=== PATIENT | male | born 1995 | race Asian ===

== ENCOUNTER 2017-11-22 15:19 | Emergency (ER) | payer MEDICAID ==
[~2017-11-22] VITALS: Ht 172.7 cm; Wt 60.3 kg
[~2017-11-22 15:19] MED LIST: IBUPROFEN600 MG ORAL
[2017-11-22] MEDS ORDERED: Lidocaine 1% MPF 10mg/ml 5ml INJ ONE (17:00)
[2017-11-22 17:10] VITALS: BP 136/80
[2017-11-22 18:25] VITALS: BP 136/80
--- NOTE | 2017-11-22 22:20 | Emergency Room Report ---
History of Present Illness General Chief Complaint: Laceration Source: Patient Present Illness HPI The patient is a 22-year-old male presenting for right thumb laceration which occurred at work today . He is left-hand dominant. He states that he was using an instrument to peel which slipped. He then experienced pain and bleeding. Pain is a 5/10 dull ache. Does not radiate. He denies any numbness or tingling. Last tetanus shot within 10 years. He denies any other symptoms Allergies: Coded Allergies: No Known Allergies (Unverified , 01/09/16) Patient History Past Medical History: see triage record Pertinent Family History: none Reviewed Nursing Documentation: PMH: Agreed, PSxH: Agreed Nursing Documentation-PMH Past Medical History: No Stated History Hx Asthma: Yes Review of Systems All Other Systems: negative except mentioned in HPI Physical Exam Vital Signs Date Time Temp Pulse Resp B/P (MAP) Pulse Ox O2 Delivery O2 Flow Rate FiO2 11/22/17 16:56 98.4 87 16 144/84 97 Room Air Sp02 EP Interpretation: reviewed, normal General Appearance: no apparent distress, alert, GCS 15, non-toxic Head: normocephalic, atraumatic Eyes: bilateral eye normal inspection, bilateral eye PERRL ENT: hearing grossly normal, normal pharynx, no angioedema, normal voice Musculoskeletal: tender - 4cm linear laceration to R thumb Neurologic: alert, oriented x3, responsive, motor strength/tone normal, sensory intact, speech normal Psychiatric: judgement/insight normal, memory normal, mood/affect normal, no suicidal/homicidal ideation Skin: normal color, no rash, warm/dry, well hydrated, laceration - R thumb Procedures Laceration/Wound Repair Laceration/Wound Repair : Consent: Verbal Wound Location: upper extremity Wound's Depth, Shape: superficial, linear Wound Length (cm): 4 Wound Explored: clean Irrigated w/ Saline (ccs): 100 Betadine Prep?: Yes Anesthesia: 1% Lidocaine Volume Anesthetic (ccs): 4 Wound Debrided: minimal Wound Repaired With: sutures Suture Size/Type: 5:0, nylon Number of Sutures: 7 Layer Closure?: No Sterile Dressing Applied?: Yes Splint Applied?: No Sling Applied?: No Patient Tolerated: Well Complications: None Medical Decision Making PA Attestation Dr. Holley is my supervising physician. Patient management was discussed with my supervising physician Diagnostic Impression: Primary Impression: Thumb laceration Qualified Codes: S61.011A - Laceration without foreign body of right thumb without damage to nail, initial encounter ER Course The patient is a 22-year-old male presenting for right thumb laceration which occurred at work today Ddx considered include but not limited to fracture, tendon/ligament injury, avulsion, nerve damage Physical exam reveals a 4 cm linear laceration to the right palmar surface of thumb distal to IP joint. Full active range of motion is intact. The wound was irrigated with normal saline and cleaned with betadine. A 27g needle was used to administer 4mL of lidocaine w.o epi for local anasthesia. 7 sutures were placed with 5-0 Nylon. The wound was well approximated and the patient tolerated the procedure well. The wound was then cleaned dressing was applied. He's given suture care instructions and will be discharged home. ER precautions given Last Vital Signs Date Time Temp Pulse Resp B/P (MAP) Pulse Ox O2 Delivery O2 Flow Rate FiO2 11/22/17 18:25 98.5 77 16 136/80 99 Room Air Status: improved Disposition: HOME, SELF-CARE Condition: Improved Referrals: [facility],REFERR[facility] (PCP) Patient Instructions: Laceration Care, Adult Additional Instructions: I discussed my findings with the patient. All questions and concerns have been answered. Treatment and medication compliance have been addressed. I advised the patient that they need to follow up with PMD in 7 days for wound check and suture removal. If you are unable to see PMD, return to the ED in 7 days. Return to ED if pain remains or worsens, you notice discharge from the wound, the wound continues to bleed, the suture/s fall out, you notice a fever or chills, or for any reason. Patient is advised to keep the wound clean. Patient verbalized understanding of discharge instructions. FABIEN VELÁSQUEZ Nov 22, 2017 22:20
== END 2017-11-22 19:00 | disposition home or self-care (01) ==
LOC: EMR 18:35
DX: S61.011A Laceration without foreign body of right thumb without damage to nail, initial encounter (principal); J45.909 Unspecified asthma, uncomplicated; W27.4XXA Contact with kitchen utensil, initial encounter; Y93.G1 Activity, food preparation and clean up; Y92.9 Unspecified place or not applicable; Y99.0 Civilian activity done for income or pay
CPT/HCPCS: 12002; 99283; Z7502

== ENCOUNTER 2019-07-05 11:48 | Emergency (ER) | payer MEDICAID ==
[~2019-07-05] VITALS: Ht 170.2 cm; Wt 60.3 kg
[2019-07-05 11:56] VITALS: BP 132/88
--- NOTE | 2019-07-05 12:05 | NUR ---
ED Nurse Note: Patient walked into ED and reports that he noticed a brown/black vertical line across his left big toe nail on the left foot. patient denies any pain. patient is alert awake x4 ambulatory. breathing unlabored and even.
--- NOTE | 2019-07-05 12:41 | Emergency Room Report ---
History of Present Illness General Chief Complaint: General Complaint Source: Patient Present Illness HPI 23-year-old male with no significant past medical history here complaining of a brown discoloration over the nailbed of his right big toe times few days. Patient denies any injury, pain, pruritus. Linear brown line across the nailbed of his big toe has been noted. Denies any similar lesions anywhere else. Denies history of anemia, chest pain, shortness of breath, palpitation, tingling or numbness. Has not yet seen his primary care physician in this regard. Allergies: Coded Allergies: No Known Allergies (Unverified , 01/09/16) Patient History Past Medical History: see triage record Past Surgical History: unable to obtain Pertinent Family History: none Immunizations: UTD Reviewed Nursing Documentation: PMH: Agreed; PSxH: Agreed Nursing Documentation-PMH Hx Asthma: Yes Review of Systems All Other Systems: negative except mentioned in HPI Physical Exam Vital Signs Date Time Temp Pulse Resp B/P (MAP) Pulse Ox O2 Delivery O2 Flow Rate FiO2 07/05/19 11:56 97.9 93 19 132/88 99 Room Air Sp02 EP Interpretation: reviewed, normal General Appearance: no apparent distress, alert, GCS 15, non-toxic Head: normocephalic, atraumatic Eyes: bilateral eye normal inspection, bilateral eye PERRL ENT: hearing grossly normal, normal pharynx, no angioedema, normal voice Neck: full range of motion, supple/symm/no masses Respiratory: chest non-tender, lungs clear, normal breath sounds, speaking full sentences Cardiovascular #1: regular rate, rhythm, no edema Gastrointestinal: normal inspection, non tender Musculoskeletal: normal inspection, back normal, digits/nails normal Neurologic: alert, oriented x3, responsive, motor strength/tone normal, sensory intact, speech normal Psychiatric: judgement/insight normal, memory normal, mood/affect normal, no suicidal/homicidal ideation Skin: other - Linear brown lesion noted on right big toe underneath the nailbed Lymphatic: normal inspection Medical Decision Making PA Attestation All diagnoses and treatment plans were reviewed and discussed with my supervising physician Dr. Matamoros Diagnostic Impression: Primary Impression: Skin lesion ER Course 23-year-old male with no significant past medical history here complaining of a brown discoloration over the nailbed of his right big toe times few days. Patient denies any injury, pain, pruritus. Linear brown line across the nailbed of his big toe has been noted. Denies any similar lesions anywhere else. Denies history of anemia, chest pain, shortness of breath, palpitation, tingling or numbness. Has not yet seen his primary care physician in this regard. Ddx considered but are not limited to: Toe fungus versus cellulitis versus ingrown toenails versus skin lesion versus melanoma Vital signs: are WNL, pt. is afebrile H&PE are most consistent with: Skin lesion most likely secondary to anemia ORDERS: None ED INTERVENTIONS: None required at this time. DISCHARGE: At this time pt. is stable for d/c to home. Will provide printed patient care instructions, and any necessary prescriptions. Care plan and follow up instructions have been discussed with the patient prior to discharge. Advised the patient to follow-up with her primary care provider and request referral to aircraft structural repair mechanic. To rule out melanoma Last Vital Signs Date Time Temp Pulse Resp B/P (MAP) Pulse Ox O2 Delivery O2 Flow Rate FiO2 07/05/19 12:15 93 19 Room Air 07/05/19 11:56 97.9 132/88 (103) 99 Disposition: HOME, SELF-CARE Condition: Stable Patient Instructions: Excision of Skin Lesions Additional Instructions: Follow-up follow-up with a primary care provider for anemia testing as well as referral to aircraft structural repair mechanic for examination of your toenail at this time there is no sign of injury or infection. Satnam Estes Jul 05, 2019 12:41
[2019-07-05 12:59] VITALS: BP 132/88
--- NOTE | 2019-07-05 12:59 | NUR ---
ER DISCHARGE NOTE: Patient is cleared to be discharged per SEAN WEISS, pt is aox4, on room air, with stable vital signs. pt was given dc instructions, pt was able to verbalize understanding, pt id band removed without complications. pt is able to ambulate with steady gait. pt took all belongings.
== END 2019-07-05 12:59 | disposition home or self-care (01) ==
LOC: EMR 12:30
DX: L98.9 Disorder of the skin and subcutaneous tissue, unspecified (principal); J45.909 Unspecified asthma, uncomplicated
CPT/HCPCS: 99281